=== PATIENT | female | born 1980 | race Caucasian/White ===

== ENCOUNTER → 2017-04-20 | Outpatient (CLI) | payer MEDICARE, BC ==
[~2017-04-20] MED LIST: ACYCLOVIR200 MG PO; COLACE100 MG PO; DILAUDID2 MG PO; DURAGESIC 75MC75 MCG TOP; EFFEXOR XR75 MG PO; EPOGEN2000 UNIT/ SUB-Q; FORTEO 6001 PEN/600 IM; LYRICA 150MG C150 MG PO; MOVANTIK12.5 MG PO; NORCO 5-325 MG1 TAB PO; PRAVACHOL40 MG PO; PREMPRO 0.3 MG1 EACH PO; ROXICODONE5 MG PO; SODIUM BICARBO650 MG PO; VELCADE SUB-Q
== END | disposition disaster alternative care site (69) ==
LOC: GRAD 10:00
DX: C90.01 Multiple myeloma in remission (principal); N94.10 Unspecified dyspareunia